=== PATIENT | male | born 1980 | race Two or more races ===

== ENCOUNTER 2024-01-16 04:16 | Emergency (ER) | payer MEDICAID ==
[~2024-01-16] VITALS: Ht 167.6 cm; Wt 77.3 kg
[2024-01-16 04:47] LABS: Basophils # (auto) 0.1 10 ^3/uL (0-0.2); Basophils % (auto) 0.9 % (0.0-2.0); Eosinophils # (auto) 0.5 10 ^3/uL (0-0.8); Eosinophils % (auto) 7.6 % (0.0-7.0); Hematocrit 48.4 % (41.0-53.0); Hemoglobin 16.8 g/dL (13.5-17.5); Lymphocytes # (auto) 2.3 10 ^3/uL (0.4-5.4); Lymphocytes % (auto) 33.6 % (10.0-50.0); Mean Corpuscular Hemoglobin 31.6 pg (28.0-32.0); Mean Corpuscular Hgb Conc. 34.6 g/dL (32.0-36.0); Mean Corpuscular Volume 91.2 fL (80.0-100.0); Monocytes # (auto) 0.6 10 ^3/uL (0-1.3); Neutrophils # (auto) 3.4 10 ^3/uL (1.6-8.6); Neutrophils % (auto) 49.9 % (37.0-80.0); Platelet Count (auto) 235 10^3/uL (140-450); Red Blood Cells 5.31 10^6/uL (4.5-5.90); Red Cell Distribution Width 14.6 % (11.8-14.3); White Blood Cell 6.9 10^3/uL (4.4-10.8)
[2024-01-16 05:04] LABS: Alanine Aminotransferase 36 U/L (7-40); Albumin 4.1 g/dL (3.2-4.8); Alkaline Phosphatase 58 U/L (46-116); Anion Gap 5 (5-15); Aspartate Aminotransferase 16 U/L (13-40); Blood Urea Nitrogen 15 mg/dL (9-23); Calcium 9.2 mg/dL (8.7-10.4); Carbon Dioxide 26 mmol/L (20-30); Chloride 109 mmol/L (98-107); Glucose 106 mg/dL (74-106); Potassium 4.1 mmol/L (3.5-5.1); Sodium 140 mmol/L (136-145)
[2024-01-16 05:05] LABS: Bilirubin, Total 0.6 mg/dL (0.2-1.0); Total Protein 6.5 g/dL (5.7-8.2)
[2024-01-16 07:30] VITALS: PULSE 75; RESP 20; TEMP 98.1; O2SAT 96
[2024-01-16] MEDS: KETOROLAC TROMETH 30 MG/ML 1ML VIAL IV ONE (08:22)
[2024-01-16] MEDS ORDERED: DICL50TA2 PO (13:33)
[2024-01-16 15:37] VITALS: BP 121/79; PULSE 80; RESP 16; O2SAT 98
== END 2024-01-16 15:58 | disposition home or self-care (01) ==
LOC: ER 04:16
DX: R07.89 Other chest pain (principal); F64.9 Gender identity disorder, unspecified; R42 Dizziness and giddiness; Z48.815 Encounter for surgical aftercare following surgery on the digestive system
CPT/HCPCS: 36415; 71045; 80053; 83880; 84484; 85025; 85379; 93005; 96374; 99285; J1885